=== PATIENT | female | born 1950 | race Caucasian/White ===

== ENCOUNTER 2018-01-04 11:57 | Observation (INO) | payer OTHER ==
[2018-01-04] MEDS ORDERED: NA CHLORIDE 0.9% 1,000 ML ONE (12:26)
--- NOTE | 2018-01-04 12:41 | RAD REPORT ---
EXAM DESCRIPTION: RAD - Chest Single View - 01/04/2018 12:34 pm CLINICAL HISTORY: Chest pain. COMPARISON: None. FINDINGS: Portable technique limits examination quality. Small calcified granuloma seen in the left mid lung. The lungs are otherwise clear. The heart is norm al in size. No displaced fractures. IMPRESSION: No acute intrathoracic process suspected.
[2018-01-04] MEDS ORDERED: ASPIRIN EC 81 MG TAB PO ONE (12:49)
[2018-01-04 13:06] LABS: Absolute Lymphocytes (CBC) 3.4 K/uL (0.7-4.9); Absolute Monocytes 0.7 K/uL (0.1-1.3); Absolute Neutrophil 5.5 K/uL (1.8-8.0); Basophils % 0.6 % (0-1.3); Eosinophils % 2.9 % (0-4.4); Hematocrit 40.7 % (36.0-45.0); Lymphocytes % 34.2 % (15.3-44.8); MCV 89.2 fL (80-100); MPV 8.4 fL (7.6-11.3); Protime INR 0.96; RBC Red Blood Cell Count 4.56 M/uL (3.86-4.86)
[2018-01-04 13:24] LABS: Potassium 3.4 mEq/L (3.6-5.0)
[2018-01-04 13:27] LABS: Albumin 4.1 g/dL (3.2-5.5); Bilirubin Total 0.3 mg/dL (0.3-1.2); CKMB Creatine Kinase MB 3.3 ng/ml (0.3-4.0); Protein, Total 7.6 g/dL (6.0-8.3)
[2018-01-04 13:30] LABS: Bilirubin Direct 0.1 mg/dL (0-0.2)
--- NOTE | 2018-01-04 13:43 | EDPHYS ---
Physician Documentation [facility] Name: Yessica Aguilar Age: 67 yrs Sex: Female : 1950 Arrival Date: 01/04/2018 Time: 12:00 Bed 16 Private MD: ED Physician Alexis Batista HPI: 01/04 12:36 This 67 yrs old Female presents to ER via Ambulatory with complaints of Chest rn Pain. 12:36 The patient or guardian reports chest pain that is located primarily in the substernal rn area. Onset: 1 hour(s) ago. The pain radiates to the right shoulder. The chest pain is described as aching, a heaviness. Duration: The patient or guardian reports a single episode, that is still ongoing. Severity of pain: At its worst the pain was moderate in the emergency department the pain has improved. The patient has not experienced similar symptoms in the past. Chest pain at rest, out of BP pills for 2 days, just picked them up, was passenger in car, chest pain began 1 hour ago, radiates to right shoulder, assoc with nausea and diaphoresis. Never had cardiac w/u.. Historical: - Allergies: 12:13 Iodine; aj - Home Meds: 12:13 amlodipine 10 mg tab 1 tab once daily [Active]; Mobic 15 mg oral tab 1 tab once daily aj [Active]; donepezil 10 mg oral tab 1 tab once daily [Active]; memantine 5 mg oral tab daily [Active]; Zyrtec 10 mg Oral tab 1 tab once daily [Active]; - PMHx: 12:13 Hypertension; Dementia; aj - Immunization history:: Adult Immunizations up to date. - Social history:: Smoking status: Patient/guardian denies using tobacco. - Family history:: not pertinent. - Hospitalizations: : No recent hospitalization is reported. ROS: 12:36 Constitutional: Negative for fever, chills, and weight loss, Eyes: Negative for injury, rn pain, redness, and discharge, Neck: Negative for injury, pain, and swelling, Cardiovascular: Negative for palpitations, and edema, Respiratory: Negative for shortness of breath, cough, wheezing, and pleuritic chest pain, Abdomen/GI: Negative for abdominal pain, diarrhea, and constipation, Back: Negative for injury and pain, MS/Extremity: Negative for injury and deformity, Skin: Negative for injury, rash, and discoloration, Neuro: Negative for headache, weakness, numbness, tingling, and seizure. Exam: 12:36 Constitutional: This is a well developed, well nourished patient who is awake, alert, rn and in no acute distress. Head/Face: Normocephalic, atraumatic. Eyes: Pupils equal round and reactive to light, extra-ocular motions intact. Lids and lashes normal. Conjunctiva and sclera are non-icteric and not injected. Cornea within normal limits. Periorbital areas with no swelling, redness, or edema. Neck: Trachea midline, no thyromegaly or masses palpated, and no cervical lymphadenopathy. Supple, full range of motion without nuchal rigidity, or vertebral point tenderness. No Meningismus. Cardiovascular: Regular rate and rhythm with a normal S1 and S2. No gallops, murmurs, or rubs. Normal PMI, no JVD. No pulse deficits. Respiratory: Lungs have equal breath sounds bilaterally, clear to auscultation and percussion. No rales, rhonchi or wheezes noted. No increased work of breathing, no retractions or nasal flaring. Abdomen/GI: Soft, non-tender, with normal bowel sounds. No distension or tympany. No guarding or rebound. No evidence of tenderness throughout. Skin: Warm, dry with normal turgor. Normal color with no rashes, no lesions, and no evidence of cellulitis. MS/ Extremity: Pulses equal, no cyanosis. Neurovascular intact. Full, normal range of motion. Equal circumference. Neuro: Awake and alert, GCS 15, oriented to person, place, time, and situation. Cranial nerves II-XII grossly intact. Motor strength 5/5 in all extremities. Sensory grossly intact. Vital Signs: 12:13 BP 164 / 93; Pulse 73; Resp 16; Temp 97.7; Pulse Ox 100% on R/A; Weight 68.04 kg; aj Height 5 ft. 3 in. (160.02 cm); Pain 6/10; 13:30 BP 131 / 69; Pulse 73; Resp 18; Pulse Ox 100% on R/A; hj 14:17 BP 130 / 65; Pulse 70; Resp 18; Pulse Ox 100% on R/A; hj 12:13 Body Mass Index 26.57 (68.04 kg, 160.02 cm) aj MDM: 12:16 Patient medically screened. rn 13:40 Differential diagnosis: acute myocardial infarction, acute pericarditis, chest wall rn pain, esophagitis, gastritis, gastroesophageal reflux disease (GERD), pericarditis, pleurisy, pneumothorax. The patient was given aspirin in the Emergency Department. Data reviewed: vital signs, nurses notes, lab test result(s), EKG, radiologic studies, plain films, and as a result, I will admit patient. Counseling: I had a detailed discussion with the patient and/or guardian regarding: the historical points, exam findings, and any diagnostic results supporting the discharge/admit diagnosis, the presence of at least one elevated blood pressure reading (>120/80) during this emergency department visit, radiology results, the need for further work-up and treatment in the hospital. Response to treatment: the patient's symptoms have mildly improved after treatment, and as a result, I will admit patient. Admission orders: after a detailed discussion of the patient's condition and case, the admit orders are written by me. ED course: Admitted to Dr. Edwards at 1341 for cardiac eval. . 01/04 12:17 Order name: Basic Metabolic Panel; Complete Time: 13:39 rn 01/04 12:17 Order name: BNP; Complete Time: 13:28 rn 01/04 12:17 Order name: CBC with Diff; Complete Time: 13:28 rn 01/04 12:17 Order name: Ckmb; Complete Time: 13:39 rn 01/04 12:17 Order name: CPK; Complete Time: 13:39 rn 01/04 12:17 Order name: LFT's; Complete Time: 13:39 01/04 12:17 Order name: Magnesium; Complete Time: 13:39 rn 01/04 12:17 Order name: PT-INR; Complete Time: 13:28 rn 01/04 12:17 Order name: Ptt, Activated; Complete Time: 13:28 rn 01/04 12:17 Order name: Troponin (emerg Dept Use Only); Complete Time: 13:28 rn 01/04 12:17 Order name: XRAY Chest (1 view); Complete Time: 12:48 rn 01/04 12:17 Order name: EKG; Complete Time: 12:18 01/04 15:00 Order name: Urine Dipstick--Ancillary (enter results) bd 01/04 12:17 Order name: Cardiac monitoring; Complete Time: 12:19 rn 01/04 12:17 Order name: EKG - Nurse/Tech; Complete Time: 12:45 rn 01/04 12:17 Order name: IV Saline Lock; Complete Time: 12:45 rn 01/04 12:17 Order name: Labs collected and sent; Complete Time: 12:45 rn 01/04 12:17 Order name: O2 Per Protocol; Complete Time: 12:19 rn 01/04 12:17 Order name: O2 Sat Monitoring; Complete Time: 12:19 rn Administered Medications: 12:36 Drug: Aspirin Chewable Tablet 324 mg Route: PO; 13:22 Follow up: Response: No adverse reaction hj Disposition: 01/04/18 13:42 Hospitalization ordered by Leilani Edwards for Observation. Preliminary diagnosis is Chest pain, unspecified. - Bed requested for Telemetry/MedSurg (observation). - Status is Observation. hj - Condition is Stable. - Problem is new. - Symptoms have improved. UTI on Admission? No Signatures: Dispatcher [employer] EDMS Mabel Troy Amanda, RN RN aj Nieto, Roman, MD MD rn Joaquin, Henry, RN RN hj Corrections: (The following items were deleted from the chart) 14:25 13:42 Hospitalization Ordered by Leilani Edwards MD for Observation. Preliminary diagnosis bd is Chest pain, unspecified. Bed requested for Telemetry/MedSurg (observation). Status is Observation. Condition is Stable. Problem is new. Symptoms have improved. UTI on Admission? No. rn 15:24 14:25 01/04/2018 13:42 Hospitalization Ordered by Leilain Edwards MD for Observation. hj Preliminary diagnosis is Chest pain, unspecified. Bed requested for Telemetry/MedSurg (observation). Status is Observation. Condition is Stable. Problem is new. Symptoms have improved. UTI on Admission? No. bd
--- NOTE | 2018-01-04 13:43 | ER ---
Nurse's Notes [facility] Name: Yessica Aguilar Age: 67 yrs Sex: Female : 1950 Arrival Date: 01/04/2018 Time: 12:00 Bed 16 Private MD: Diagnosis: Chest pain, unspecified Presentation: 01/04 12:10 Presenting complaint: Patient states: Shooting chest pain that radiates to back and aj shoulder blade that started 1 hour ago. Patient reports nausea and diaphoresis when chest pain started. Transition of care: patient was not received from another setting of care. Onset of symptoms was January 04, 2018. Care prior to arrival: None. 12:10 Method Of Arrival: Ambulatory aj 12:10 Acuity: ELVIN 3 aj 12:16 Initial Sepsis Screen: Does the patient meet any 2 criteria? No. Patient's initial hj sepsis screen is negative. Does the patient have a suspected source of infection? No. Patient's initial sepsis screen is negative. Triage Assessment: 12:13 General: Appears in no apparent distress. comfortable, Behavior is calm, cooperative, aj appropriate for age. Pain: Complains of pain in xyphoid area and mid-sternal area Pain radiates to back Pain currently is 6 out of 10 on a pain scale. Neuro: Level of Consciousness is awake, alert, obeys commands, Oriented to person, place, time, situation, Appropriate for age. Cardiovascular: Reports chest pain, diaphoresis, nausea, Capillary refill < 3 seconds in bilateral fingers Patient's skin is warm and dry. Respiratory: Airway is patent Respiratory effort is even, unlabored, Respiratory pattern is regular, symmetrical. Derm: Skin is intact, is healthy with good turgor, Skin is pink, warm \T\ dry. normal. Historical: - Allergies: 12:13 Iodine; aj - Home Meds: 12:13 amlodipine 10 mg tab 1 tab once daily [Active]; Mobic 15 mg oral tab 1 tab once daily aj [Active]; donepezil 10 mg oral tab 1 tab once daily [Active]; memantine 5 mg oral tab daily [Active]; Zyrtec 10 mg Oral tab 1 tab once daily [Active]; - PMHx: 12:13 Hypertension; Dementia; aj - Immunization history:: Adult Immunizations up to date. - Social history:: Smoking status: Patient/guardian denies using tobacco. - Family history:: not pertinent. - Hospitalizations: : No recent hospitalization is reported. Screenin:16 Abuse screen: Denies threats or abuse. Denies injuries from another. Nutritional hj screening: No deficits noted. Tuberculosis screening: No symptoms or risk factors identified. Fall Risk None identified. Assessment: 12:16 General: Appears in no apparent distress. uncomfortable, Behavior is calm, cooperative, hj appropriate for age. Pain: Complains of pain in chest and mid-sternal area and xyphoid area Pain radiates to back Pain currently is 5 out of 10 on a pain scale. Quality of pain is described as shooting, Pain began 1 hour ago. 13:20 Reassessment: awaiting results;. hj 14:16 Reassessment: Patient and/or family updated on plan of care and expected duration. Pain hj level reassessed. Patient is alert, oriented x 3, equal unlabored respirations, skin warm/dry/pink. Patient states feeling better. Vital Signs: 12:13 BP 164 / 93; Pulse 73; Resp 16; Temp 97.7; Pulse Ox 100% on R/A; Weight 68.04 kg; aj Height 5 ft. 3 in. (160.02 cm); Pain 6/10; 13:30 BP 131 / 69; Pulse 73; Resp 18; Pulse Ox 100% on R/A; hj 14:17 BP 130 / 65; Pulse 70; Resp 18; Pulse Ox 100% on R/A; hj 12:13 Body Mass Index 26.57 (68.04 kg, 160.02 cm) aj ED Course: 12:00 Patient arrived in ED. mr 12:11 Triage completed. aj 12:13 Arm band placed on right wrist. Patient placed in an exam room. aj 12:15 Keyur Cardoso, RN is Primary Nurse. hj 12:16 Alexis Batista MD is Attending Physician. rn 12:16 Patient has correct armband on for positive identification. Placed in gown. Bed in low hj position. Call light in reach. Side rails up X 1. Adult w/ patient. monitor tech on. Pulse ox on. NIBP on. 12:18 Patient maintains SpO2 saturation greater than 95% on room air. hj 12:34 XRAY Chest (1 view) In Process Unspecified. EDMS 12:40 Initial lab(s) drawn, by me, sent to lab. Inserted saline lock: 22 gauge in left antecubital area, using aseptic technique. Blood collected. 12:53 EKG done, by semiconductor lab technician. reviewed by Alexis Batista MD. sm3 13:42 Leilani Edwards MD is Hospitalizing Provider. rn 15:06 No provider procedures requiring assistance completed. Patient admitted, IV remains in hj place. intact. 15:19 Echocardiogram with doppler. Done by 3D Artist. dt2 Administered Medications: 12:36 Drug: Aspirin Chewable Tablet 324 mg Route: PO; 13:22 Follow up: Response: No adverse reaction Outcome: 13:42 Decision to Hospitalize by Provider. rn 15:06 Admitted to Tele accompanied by tech, family with patient, via wheelchair, room 402, with chart, Report called to MODESTO Godwin 15:06 Condition: stable 15:06 Instructed on the need for admit, Demonstrated understanding of instructions. 15:24 Patient left the ED. Signatures: Dispatcher [employer] EDEvi Bernstein, Ramila Cueva RN, Roman, MD MD rn Joaquin, Henry, RN RN hj Teague, Danielle dt2 Laura Marquez sm3
[2018-01-04] MEDS ORDERED: REGADENOSON 0.4 MG/5 ML SYR IV ONE (13:44)
[2018-01-04] MEDS ORDERED: Morphine 2 MG/2 ML SYR IV PRN (13:53)
[2018-01-04] MEDS ORDERED: ACETAMINOPHEN 500 MG TAB PO PRN (13:53)
[2018-01-04] MEDS ORDERED: NITROGLYCERIN 0.4 MG/TAB SL PRN (14:08)
[2018-01-04 16:01] LABS: Urine Blood NEGATIVE (NEG); Urine Glucose NEGATIVE (NEG); Urine Protein NEGATIVE (NEG); Urine pH 5.5 (5.0-7.0)
--- NOTE | 2018-01-04 16:20 | EKG ---
Test Date: 2018-01-04 Test Time: 12:21:29 Digital Media Sales Consultant: JARRET MEASUREMENT RESULTS: Intervals: Rate: 72 ME: 128 QRSD: 96 QT: 428 QTc: 468 [place]: P: 23 ME: 128 QRS: 2 T: 42 INTERPRETIVE STATEMENTS: Sinus rhythm with premature atrial complexes with aberrant conduction Otherwise normal ECG No previous ECG available for comparison Electronically Signed On 01-04-18 16:19:11 CDT by Anant Aleman
--- NOTE | 2018-01-04 17:08 | ECHO ---
HEIGHT: 5 ft 3 in WEIGHT: 150 lb 0 oz DATE OF STUDY: 01/04/[address]: Leilani Edwards MD 2-DIMENSIONAL: YES M.MODE: YES DOPPLER: YES COLOR FLOW: YES TDS: PORTABLE: DEFINITY: BUBBLE STUDY: DIAGNOSIS: CHEST PAIN CARDIAC HISTORY: CATHERIZATION: NO SURGERY: NO PROSTHETIC VALVE: NO PACEMAKER: NO MEASUREMENTS (cm) DIASTOLIC (NORMALS) SYSTOLIC (NORMALS) IVSd 1.0 (0.6-1.2) LA Diam 3.3 (1.9-4.0) LVEF 61% LVIDd 3.7 (3.5-5.7) LVIDs 2.5 (2.0-3.5) %FS 32% LVPWd 1.0 (0.6-1.2) Ao Diam 2.6 (2.0-3.7) 2 DIMENSIONAL ASSESSMENT: RIGHT ATRIUM: NORMAL LEFT ATRIUM: NORMAL RIGHT VENTRICLE: NORMAL LEFT VENTRICLE: NORMAL TRICUSPID VALVE: NORMAL MITRAL VALVE: NORMAL PULMONIC VALVE: NORMAL AORTIC VALVE: SCLEROSIS PERICARDIAL EFFUSION: NONE AORTIC ROOT: NORMAL LEFT VENTRICULAR WALL MOTION: NORMAL DOPPLER/COLOR FLOW: MILD TRICUSPID REGURGITATION COMMENTS: MILD TRICUSPID REGURGITATION, NORMAL RIGHT VENTRICULAR SYSTOLIC PRESSURE, NORMAL LEFT VENTRICULAR SIZE FUNCTION, AORTIC SCLEROSIS TECHNOLOGIST: MANOLO GIPSON
[2018-01-04] MEDS: ENOXAPARIN 40 MG/0.4 ML SQ SCH (17:39)
[2018-01-04] MEDS: LISINOPRIL 10 MG TAB PO SCH (17:39)
[2018-01-04 18:31] VITALS: BMI 26.5
[2018-01-04] MEDS ORDERED: ATORVASTATIN 40 MG TAB PO SCH (21:00)
[2018-01-04] MEDS ORDERED: DONEPEZIL HCL 5 MG TAB PO SCH (21:00)
[2018-01-04] MEDS: METOPROLOL TAR 25 MG TAB PO SCH (21:00)
--- NOTE | 2018-01-05 03:34 | HP ---
Date of Admission: 01/04/2018 Primary Care Physician: Out of town in [place] Consultants: Dr. Aleman with Cardiology. Chief Complaint: Chest pain. History Of Present Illness: The patient is a 67-year-old female with past medical history of hypertension, carotid artery disease, dementia, hypothyroidism, urinary incontinence, hyperlipidemia, diet controlled, who was in her usual state of health until the day of admission when the patient had sudden onset of nausea and some abdominal discomfort, which was vague, generalized, nonradiating. The patient not really able to tolerate p.o. The patient was at rest when she had sudden onset of substernal chest pain, which radiated to her back. Of note, sister states that the patient had been uncomfortable wearing a brassiere and may be related to that. However, the patient did experience some nausea, diaphoresis and therefore came into the ER for further evaluation. Her symptoms are constant, moderate, progressively worsening. No alleviating or aggravating factors. In the ER, her vital signs were stable. Her workup revealed a negative troponin level. Her potassium was low at 3.4. White count was normal. EKG did not show any acute changes. The patient was referred for admission for chest pain, rule out ACS. When seen in the ER she was awake, alert, oriented x3, not in any acute distress. Her pain had essentially improved. Past Medical History: Hypertension, dementia, hypothyroidism, urinary incontinence, carotid artery disease, hyperlipidemia, diet-controlled. Surgical History: Cholecystectomy and left clavicle surgery with hardware, hysterectomy, history of kidney stent with subsequent removal, cataract surgery on the right. Allergies: TO IODINE. Medications: List reviewed. Social History: The patient denies any alcohol use, tobacco use or illicit drug use. The patient is independent in her activities of daily living. Family History: Father of mesothelioma, also had prostate cancer and COPD and hypertension. Sister also of mesothelioma. Brothers have coronary artery disease and diabetes. Mother had diabetes, hypertension, heart disease with subsequent bypass surgery, ulcers in the colon. Review of Systems: An 11-point system reviewed, negative except as per HPI. Physical Examination: Vital Signs: Temperature 97.7, heart rate 73, blood pressure 164/93, respirations 16, O2 100% on room air. General: Awake, alert, oriented x3. Some mild distress. Elderly female, somewhat ill-appearing. HEENT: Normocephalic, atraumatic. PERRLA, EOMI. Dry mucous membranes. Oropharynx is clear. Conjunctivae anicteric. Neck: Supple. No JVD. Trachea midline. CV: S1, S2. Regular rate and rhythm. Peripheral pulses present. No murmurs. Respiratory: Clear to auscultation bilaterally. No wheezing. No stridor. No use of accessory muscles. Gastrointestinal: Abdomen is soft, nontender, nondistended. Positive bowel sounds. No guarding or rigidity. No palpable masses. No hepatomegaly. Extremities: No clubbing, cyanosis, or edema. No calf tenderness. Skin: No rashes. Normal skin turgor. Musculoskeletal: Point tenderness in the lower sternum. Psych: Mood is okay. Affect is full. Insight and judgment are good. Neuro: Cranial nerves 2 through 12 intact grossly. No focal neurological deficit. Speech is normal. Strength is 5/5 bilateral upper lower extremities. Sensation intact to light touch. No facial asymmetry. Laboratory Data: WBC 10, H and H 13.2 and 40.7, platelets 370, neutrophils 55% . INR 0.96. Sodium 137, potassium 3.4, chloride 104, CO2 26, BUN 14, creatinine 0.79, glucose 96, calcium 8.9, magnesium 2. AST 65, ALT 31, total bilirubin 0.3, alkaline phosphatase 73. Troponin less than 0.03. BNP 87. Albumin 4.1. UA is negative. Chest x-ray, personally reviewed, shows no acute intrathoracic process. Small calcified granuloma in the left mid lung. Assessment: A 67-year-old female with. 1. Chest pain, rule out acute coronary syndrome. Initial troponin and EKG are negative for acute changes. We will continue on chest pain guidelines with JESSICA inhibitors and beta-aidee, statin. We will consult Cardiology. We will obtain serial cardiac enzymes and EKG p.r.n. may be component of musculoskeletal pain and the patient does have point tenderness, however, has strong family history. 2. Hypokalemia. We will replace and monitor. 3. Essential hypertension. We will resume home medications. 4. Alzheimer dementia, early onset without behavioral disturbance. We will continue on Namenda. 5. Hypothyroidism. Continue Synthroid. 6. History of urinary incontinence. UA is negative. 7. Carotid artery disease. 8. Hyperlipidemia, diet controlled. We will check lipid panel. 9. Gastrointestinal and deep venous thrombosis prophylaxis with PPI and Lovenox. Plan: Admit the patient to Med-Surg, place as observation. No MPOA or living will /LIGIA Voice ID: [id number] MTDSaul
[2018-01-05 05:56] LABS: Absolute Monocytes 0.7 K/uL (0.1-1.3); Absolute Neutrophil 4.2 K/uL (1.8-8.0); Basophils % 0.8 % (0-1.3); Eosinophils % 4.5 % (0-4.4); Hematocrit 37.8 % (36.0-45.0); Lymphocytes % 35.7 % (15.3-44.8); MCH 29.3 pg (27.0-35.0); MPV 8.4 fL (7.6-11.3); RBC Red Blood Cell Count 4.24 M/uL (3.86-4.86)
[2018-01-05 06:57] LABS: Potassium 4.2 mEq/L (3.6-5.0)
[2018-01-05 07:31] LABS: Thyroid Stimulating Hormone 7.21 uIU/mL (0.34-5.60)
[2018-01-05] MEDS: ENOXAPARIN 40 MG/0.4 ML SQ SCH (08:32)
[2018-01-05] MEDS: METOPROLOL TAR 25 MG TAB PO SCH (08:33)
[2018-01-05] MEDS: LISINOPRIL 10 MG TAB PO SCH (08:37)
[2018-01-05 08:52] VITALS: O2SAT 96
[2018-01-05] MEDS ORDERED: CETIRIZINE HCL 5 MG TABLET PO SCH (09:00)
[2018-01-05] MEDS ORDERED: MEMANTINE HCL 10 MG TABLET PO SCH (09:00)
[2018-01-05] MEDS ORDERED: ASPIRIN EC 81 MG TAB PO SCH (09:00)
[2018-01-05] MEDS ORDERED: LEVOTHYROXINE SOD 0.025 MG TAB PO SCH (09:32)
--- NOTE | 2018-01-05 12:31 | CON ---
Identification: A 67-year-old woman. Chief Complaint: Chest pain. History Of Present Illness: Ms. Aguilar was in her usual state of health until yesterday. She was driving when she had the sudden onset of epigastric pain. It was sharp. It has lasted more than 12 hours. It has largely resolved but not gone away. It was not pleuritic in nature and since being h ere, she has had a normal echocardiogram. Electrocardiogram showed premature atrial complexes, but o therwise was normal and cardiac enzymes are normal. The patient has never had heart disease. She aguilar s dementia. She has had gallbladder surgery. She has had stomach problems, but nobody seems to be a ble to figure out. Outpatient Medications: Meloxicam, donepezil, amlodipine, memantine, and cetirizine. Allergies: SHE IS ALLERGIC TO X-RAY CONTRAST MATERIAL. Physical Examination: Vital Signs: 5 feet 3 inches, 150 pounds. HEENT: Normal. Lungs: Clear. Cardiac: Within normal limits. No friction rub, murmur, or gallop. Abdomen: Soft. Extremities: Normal distal pulses. Neurologic: Consistent with dementia. She seems to forget thing she said just a minute ago, but she does have a memory of yesterday's events. Social History: She has never used tobacco, alcohol, or illegal drugs. Impression: The patient is not having an acute coronary syndrome. We will do a pharmacologic nuclea r stress test. If that is normal, she could be discharged without further evaluation. ANKIT Voice ID: [id number] Report ID: [id number]
--- NOTE | 2018-01-05 12:55 | RAD REPORT ---
EXAM DESCRIPTION: NM - Rest Stress Cardiac Imaging - 01/05/2018 12:46 pm CLINICAL HISTORY: Chest pain. COMPARISON: None. TECHNIQUE: The patient was administered approximately 10mCi of Tc 99m Sestamibi prior to resting SPE CT imaging of the heart. The patient was then administered approximately 30 mCi of Tc 99m Sestamibi f ollowing exercise or pharmacologic stress. Multiplanar SPECT images were reviewed. FINDINGS: No stress induced ischemic defect is seen to suggest stress induced ischemia. No fixed def ect is seen to suggest hibernating myocardium or scarred myocardium. The end diastolic volume is 53 ml, the end systolic volume is 15 ml, and the ejection fraction is 72 %. IMPRESSION: No stress induced ischemia.
--- NOTE | 2018-01-05 15:05 | RAD REPORT ---
EXAM DESCRIPTION: CT - Abdomen Pelvis Wo Contrast - 01/05/2018 2:53 pm CLINICAL HISTORY: Abdominal pain. Diarrhea COMPARISON: None TECHNIQUE: CT imaging of the abdomen and pelvis was performed without contrast. Solid organ, bowel a nd vascular assessment is limited due to lack of IV and oral contrast. All CT scans are performed using dose optimization technique as appropriate and may include automated exposure control or mA/KV adjustment according to patient size. FINDINGS: The lower lung aguilera are clear. The liver contains a 2.8 cm cyst in the right lobe medially. Cholecystectomy clips are seen. No bilia ry dilatation. Spleen, pancreas, adrenal glands and kidneys are within normal limits for a limited no n-contrast examination. No bowel obstruction, free air, free fluid or abscess. Thickening of the rectosigmoid colon is presen t suggesting mild nonspecific colitis. The appendix is not identified as a discrete structure, howeve r, no secondary findings of appendicitis are identified. The osseous structures are within normal limits. IMPRESSION: Mild nonspecific retrosigmoid colitis. A limited non-contrast examination was performed as detailed.
--- NOTE | 2018-01-05 15:40 | DS ---
Date of Discharge: 01/05/2018 Consultants: Dr. Figueroa with Cardiology. Procedures: Pharmacologic stress test on 01/05/2018, negative for stress-induced ischemia. Admitting Diagnoses: 1.Chest pain. 2.Hypokalemia. 3.Essential hypertension. 4.Alzheimer dementia early onset without behavioral disturbance. 5.Hypothyroidism. 6.History of urinary incontinence. 7.Carotid artery disease. 8.Hyperlipidemia, diet controlled. Discharge Diagnoses: 1.Atypical chest pain, acute coronary syndrome ruled out. 2.Abdominal pain, resolved. 3.Hypokalemia, corrected. 4.Essential hypertension, stable. 5.Alzheimer's dementia, early onset without behavioral disturbance. 6.Hypothyroidism, Synthroid restarted. 7.History of urinary incontinence. UA is negative. 8.Carotid artery disease. 9.Hyperlipidemia, diet controlled. Lipid panel is normal. Hospital Course: The patient is a 67-year-old female, who came in with chest pain and vague abdomina l discomfort. She was found to have some low potassium. She was admitted to the hospital for chest pain, rule out ACS. Her cardiac enzymes were negative. EKG did not show any acute changes. Echocar diogram showed normal ejection fraction. The patient was seen by [facility] spring former, Dr. Figueroa and a stre ss test was done, which was negative. The patient was then cleared for discharge. Her pain had reso lved. Of note, the patient has been on Mobic, which may be causing some epigastric discomfort. The patient was advised to stop taking meloxicam and to take Tylenol instead along with supplementing wit h [id number] PPI for 1 month trial. She needs to follow up with GI for further evaluation of h er epigastric pain to rule out ulcer and H pylori. No GI is available at this time. Discharge Condition: Stable. Medications: As per medication reconciliation list. Followup: 1.Follow up with primary care physician in 2-3 days. 2.Follow up with [facility] former, Dr. Figueroa in 4 weeks. 3.Follow up with GI in 2-4 weeks. Return to ER for worsening condition. Diet: Heart healthy. Activity: As tolerated. Physical Examination: General: Awake, alert, oriented, no acute distress CV: S1, S2. No murmurs. Respiratory: Moving air well bilaterally. No wheezing. Abdomen: Abdomen is soft, nontender, nondistended. Positive bowel sounds. Extremities: No clubbing, cyanosis, edema. Neurologic: Nonfocal. SA/MODL Voice ID: [id number] Report ID: [id number]
[2018-01-05 15:44] VITALS: BP 124/58; TEMP 98.8
--- NOTE | 2018-01-05 16:17 | TREADPHA ---
DX: CHEST PAIN Date of Study: 01/05/2018 Ht: 5 3 Wt: 150 lb 0 oz Consulting Physician: NABIL MEDICATIONS: TYLENOL, PROVENTIL, NORVASC, ASPIRIN, LIPITORM, ARICEPT, LOVENOX, PEPCID, LASIX, NEURONTIN, LEVAQUIN, PRINIVIL HISTORY: 67 YEAR OLD FEMALE COMPLAINTS OF CHEST PAIN. MEDICAL HISTORY: HYPERTENSION, DEMENTIA. PHYSICIAL EXAMINATION: RESTING B.P.: 140/82 RESTING H.R.: 53 RESTING EKG: SINUS BRADYCARDIA. OTHERWISE NORMAL. PROTOCOL: LEXISCAN EXERCISE TIME: 3:30 B.P. AT PEAK STRESS: 138/80 IMPRESSION: LEXISCAN INJECTED. CARDIOLITE INJECTED PER PROTOCOL SEE NUCLEAR MEDICINE REPORT. NO SUPRAVENTRICULAR TACHYCARDIA. NO VENTRICULAR TACHYCARDIA. NO PREMATURE VENTRICULAR COMPLEXES. DENIED CHEST PAIN. NON-DIAGNOSTIC ELECTROCARDIOGRAM WITH LEXISCAN STRESS.
== END 2018-01-05 18:25 | disposition home or self-care (01) ==
LOC: ER 11:57 → ERHOLD 13:43 → 4TH 15:01
PROVIDERS: ADMIT Family Medicine; ATTEND Family Medicine
DX: R07.9 Chest pain, unspecified (principal); R10.9 Unspecified abdominal pain; E87.6 Hypokalemia; I10 Essential (primary) hypertension; G30.9 Alzheimer's disease, unspecified; F02.80 Dementia in other diseases classified elsewhere, unspecified severity, without behavioral disturbance, psychotic disturbance, mood disturbance, and anxiety; E03.9 Hypothyroidism, unspecified; I25.10 Atherosclerotic heart disease of native coronary artery without angina pectoris; I77.89 Other specified disorders of arteries and arterioles; E78.5 Hyperlipidemia, unspecified; Z91.041 Radiographic dye allergy status
CPT/HCPCS: 36415; 71045; 74176; 78452; 80048 ×2; 80061; 80076; 81003; 82550; 82553; 83735; 83880; 84439; 84443; 84484 ×3; 85025 ×2; 85610; 85730; 87493; 93005; 93017; 93306; 94760 ×3; 99285; A9500; G0378 ×2; J1650 ×2; J2785; J7030; 74177